=== PATIENT | male | born 1940 | race Caucasian/White ===

== ENCOUNTER 2018-01-22 13:35 | Emergency (ER) | payer MEDICAID | END 2018-01-22 16:27 | disposition home or self-care (01) | LOC: FTE 13:35 | DX: T83.038A Leakage of other urinary catheter, initial encounter (principal); I10 Essential (primary) hypertension; Y73.8 Miscellaneous gastroenterology and urology devices associated with adverse incidents, not elsewhere classified | CPT/HCPCS: 99283; Z7502 ==

== ENCOUNTER 2018-11-04 06:27 | Emergency (ER) | payer SELFPAY, MEDICAID ==
[2018-11-04] MEDS: KETOROLAC 15 MG INJ IM (07:53)
[2018-11-04] MEDS: LIDOCAINE 1% (MDV) 20 ML INJ INJ (08:00)
[2018-11-04] MEDS: LIDOCAINE 1% (MDV) 10 ML INJ INJ (08:22)
[2018-11-04] MEDS: HYDROCODONE/APAP (5/325) TAB PO (09:56)
[2018-11-04 10:36] LABS: FLD MN% 5.4 %; FLD PMN% 94.6 %; FLD RBC 96000 /uL
[2018-11-04 10:47] LABS: FLD WBC 22 /cmm
[2018-11-04 10:48] LABS: FLD TYPE OTHERS
[2018-11-04 10:48] LABS: FLD CLARITY HAZY; FLD COLOR RED
[2018-11-04 11:19] LABS: FLD TYPE OTHERS
== END 2018-11-04 12:00 | disposition home or self-care (01) ==
LOC: E/R 06:27
DX: M25.562 Pain in left knee (principal); I10 Essential (primary) hypertension; M25.462 Effusion, left knee
CPT/HCPCS: 20610; 73562; 87070; 89051; 89060; 96372; 99284-25